=== PATIENT | male | born 1995 | race Caucasian/White ===

== ENCOUNTER → 2020-12-20 | Outpatient (CLI) | payer OTHER ==
--- NOTE | 2020-12-20 17:34 | DIREP ---
PROCEDURE:US DUPLEX UPPER EXTREMITY VEINS-LT COMPARISON:None. INDICATIONS:Phlebitis and thrombophlebitis of unspecified site I80.9, POST IV SITE TECHNIQUE:Graded compression, color flow and spectral analysis of the left upper extremity was performed in the usual manner. FINDINGS: Internal Jugular:Visualized portions are patent. Subclavian:Visualized portions are patent. Axillary:Patent. Brachial:Patent. Cephalic:Thrombus. Basilic:Thrombus. Radial:Patent. Ulnar:Patent. Doppler evaluation: Color-flow evaluation confirms thrombus in the cephalic and basilic veins. CONCLUSION:Venous thrombus, and the cephalic and basilic vein. Dictated by: Julian Cotto MD on 12/20/2020 at 05:31 PM
== END | disposition home or self-care (01) ==
LOC: RAD 12:44
PROVIDERS: ATTEND Nurse Practitioner Family
DX: I82.622 Acute embolism and thrombosis of deep veins of left upper extremity (principal); I80.9 Phlebitis and thrombophlebitis of unspecified site
CPT/HCPCS: 93971